=== PATIENT | female | born 1985 | race Caucasian/White ===

== ENCOUNTER 2023-09-17 12:43 | Outpatient (RCR) | payer BC, SELFPAY | END 2023-09-17 23:59 | disposition home or self-care (01) | LOC: RPT 12:43 | PROVIDERS: ATTENDING PHYSICIAN Obstetrics & Gynecology; PRIMARYCARE PHYSICIAN Internal Medicine | DX: N39.41 Urge incontinence (principal); N39.3 Stress incontinence (female) (male); M62.89 Other specified disorders of muscle; N39.46 Mixed incontinence; Z73.6 Limitation of activities due to disability; R27.8 Other lack of coordination; M62.81 Muscle weakness (generalized) | CPT/HCPCS: 97014; 97112; 97530 ==

== ENCOUNTER 2023-10-15 12:06 | Outpatient (RCR) | payer BC, SELFPAY | END 2023-10-15 14:49 | disposition home or self-care (01) | LOC: RPT 12:06 | PROVIDERS: ATTENDING PHYSICIAN Obstetrics & Gynecology; PRIMARYCARE PHYSICIAN Internal Medicine | DX: N39.41 Urge incontinence (principal); N39.3 Stress incontinence (female) (male); M62.89 Other specified disorders of muscle; Z73.6 Limitation of activities due to disability; N39.46 Mixed incontinence; M62.81 Muscle weakness (generalized); R27.8 Other lack of coordination | CPT/HCPCS: 97014; 97112; 97530 ==